=== PATIENT | male | born 1960 | race Hispanic/Latino ===

== ENCOUNTER 2017-11-07 00:49 | Emergency (ER) | payer BC ==
[2017-11-07] MEDS ORDERED: LIDOCAINE/PRILOCAINE CREAM 5GM TUBE TP ONE (01:10)
[2017-11-07] MEDS ORDERED: ONDANSETRON HCL 4 MG/2 ML VIAL ONE (01:19)
[2017-11-07] MEDS ORDERED: MORPHINE SULFATE 4 MG/1ML SYG ONE ×2 (01:19→02:20)
[2017-11-07] MEDS ORDERED: MORPHINE SULFATE 2 MG/ML 1ML SYG ONE (01:37)
[2017-11-07] MEDS ORDERED: KETOROLAC TROMETHAMINE 30MG/ML ONE (02:14)
[2017-11-07] MEDS ORDERED: SODIUM CHLORIDE 0.9% 1000ML 1,000 ML IV ONE (02:14)
== END 2017-11-07 03:38 | disposition home or self-care (01) ==
LOC: EDH 00:49
DX: K64.5 Perianal venous thrombosis (principal)
CPT/HCPCS: 46083; 96361; 96374; 96375; 96376; 99284; J1885; J2270 ×2; J2405; J3490; J7030

== ENCOUNTER → 2021-10-21 | Outpatient (CLI) | payer OTHER | END | disposition home or self-care (01) | LOC: OIH 10:29 | PROVIDERS: ATTEND Internal Medicine | DX: Z13.6 Encounter for screening for cardiovascular disorders (principal) | CPT/HCPCS: 75571 ==